=== PATIENT | female | born 1955 | race Caucasian/White ===

== ENCOUNTER 2022-07-28 13:06 | Emergency (ER) | payer OTHER ==
[~2022-07-28] VITALS: Ht 170.2 cm; Wt 158.8 kg
--- NOTE | 2022-07-28 14:45 | NUR ---
Laci Carcamo insert midline to RUE.
--- NOTE | 2022-07-28 14:59 | NUR ---
Draw LABs from midline.
[2022-07-28 15:05] LABS: HEMATOCRIT 34.8 % (31.2-41.9); MEAN CORPUSCULAR HEMOGLOBIN 24.1 uug (24.7-32.8); MEAN CORPUSCULAR VOLUME 77.9 fL (75.5-95.3); PLATELET COUNT (AUTO) 226 K/uL (179-408)
[2022-07-28 15:15] LABS: CREATININE 0.8 mg/dL (0.6-1.3); POTASSIUM 3.9 mmol/L (3.5-5.1)
--- NOTE | 2022-07-28 15:57 | NUR ---
Called multiple ambulance transfers, including,:[facility], [facility], non had briatric trasfer. Spoke to [facility], awaiting call back from their MD, for approval for transfer home.
--- NOTE | 2022-07-28 16:22 | NUR ---
Recieved a call from [facility], ETA for pt's pickup is at 1710 by [place] [facility]. Pt made aware and agreed.
--- NOTE | 2022-07-28 16:30 | NUR ---
Midline removed. Catheter intact and site benign. Pressure and 4x4 gauze applied to site. No bleeding noted.
--- NOTE | 2022-07-28 18:50 | NUR ---
Written and verbal after care instructions given. Patient verbalizes understanding of instructions. Stressed follow up or return to ER for worsening s/s.
--- NOTE | 2022-07-28 18:51 | NUR ---
Report given to transfering drywall contractor. Pt left ER via gurney in stable condition. All belongings sent w/ pt.
[2022-07-28 18:53] VITALS: BP 128/77
== END 2022-07-28 18:54 | disposition short-term general hospital (02) ==
LOC: ER 13:06
DX: I87.2 Venous insufficiency (chronic) (peripheral) (principal); I83.893 Varicose veins of bilateral lower extremities with other complications; E66.01 Morbid (severe) obesity due to excess calories; Z68.43 Body mass index [BMI] 50.0-59.9, adult; I48.91 Unspecified atrial fibrillation; E11.9 Type 2 diabetes mellitus without complications
CPT/HCPCS: 36415; 85025; A4663